=== PATIENT | female | born 1980 | race African-American/Black ===

== ENCOUNTER 2017-05-19 04:42 | Emergency (ER) | payer SELFPAY ==
[2017-05-19 05:08] LABS: URINE HCG POC HCG NEGATIVE (Negative)
[2017-05-19 05:11] LABS: BILIRUBIN,URINE NEGATIVE (NEG); CLARITY,URINE CLEAR; COLOR,URINE YELLOW; GLUCOSE,URINE NEGATIVE (NEG); NITRITE,URINE NEGATIVE (NEG); PROTEIN,URINE NEGATIVE (NEG-TRACE); UROBILINOGEN,URINE 0.2 mg/dL (0.2 mg/dL)
[2017-05-19 05:18] LABS: BACTERIA,URINE 0 /HPF (0-FEW); RBC,URINE OCC /HPF (0-2); SQUAMOUS EPITHELIAL CELL,UR FEW /LPF; WBC,URINE OCC /HPF (0-4)
[2017-05-19] MEDS: cefTRIAXone IM 250 MG VIAL IM (05:29)
[2017-05-19] MEDS: AZITHROMYCIN 250 MG TABLET. PO (05:31)
[2017-05-19] MEDS: HYDROcodone/APAP 5/325MG 1 TAB TABLET PO (05:32)
[2017-05-19] MEDS: ONDANSETRON ODT 4 MG TAB.RAPDIS. PO (05:33)
[2017-05-19] MEDS: IBUPROFEN 800 MG TABLET. PO (05:34)
[2017-05-19 17:16] LABS: HIV ANTIBODY Non Reactive (Non Reactive)
[2017-05-22 19:16] LABS: CHLAMYDIA PROBE Negative (Negative); GC PROBE Negative (Negative)
== END 2017-05-19 05:50 | disposition home or self-care (01) ==
LOC: ER 04:42
DX: N89.8 Other specified noninflammatory disorders of vagina (principal); R10.30 Lower abdominal pain, unspecified; M54.5 Low back pain; R11.0 Nausea
CPT/HCPCS: 36415; 81001; 81025; 86703; 87491; 87591; 96372; 99284-25; J0696; Q0111; Q0144; Q0162